=== PATIENT | female | born 1975 | race Caucasian/White ===

== ENCOUNTER 2019-04-28 18:17 | Emergency (ER) | payer BC ==
[2019-04-28] MEDS ORDERED: HYDROmorphone 0.5 MG/0.5 ML Syringe IM ONE (19:08)
[2019-04-28] MEDS ORDERED: cefTRIAXone 1 GM Vial IM ONE (19:08)
[2019-04-28] MEDS ORDERED: Ondansetron 4 MG Tab.DIS PO ONE (19:08)
[2019-04-28] MEDS ORDERED: Lidocaine 1% PF 2 ML SDV INJECT ONE (19:09)
--- NOTE | 2019-04-28 19:24 | EDM.PDOC ---
ED HPI GENERAL MEDICAL PROBLEM - General Chief Complaint: ENT Problem Stated Complaint: tooth pain Time Seen by Provider: 04/28/19 18:30 Source of Information: Reports: Patient, RN Notes Reviewed History Limitations: Reports: No Limitations - History of Present Illness INITIAL COMMENTS - FREE TEXT/NARRATIVE: Patient is a 43-year-old female who presents to the ED for evaluation of a dental complaint. Patient notes she is having right lower dental pain that developed this last . She did go to the clinic on Monday, and was started on Augmentin 875/125 mg twice a day, and was given tramadol for pain management. Patient notes that the tramadol is not drinking much for the pain at all. The patient notes that the tooth that seems to be throbbing is a tooth she's had a root canal done before. The patient tried calling her dental office on Monday, however found out that the office is only open Wednesdays and of the week. Patient notes she has not gotten much sleep since Monday due to the pain. She states it's hard to even open her mouth to chew, as the pain is too intense and it does shoot up into her ear at times. She has been trying Orajel, clove oil, hydrogen peroxide rinses, and none of this seems to be helping much at all. She also notes she has been taking Tylenol and ibuprofen with little to no relief. The patient appreciates some swelling into her right lower jaw. Right Lower Tooth/Teeth Pain Score (Numeric/FACES): 10 - Related Data Allergies Allergy/AdvReac Type Severity Reaction Status Date / Time sulfacetamide Allergy Rash Verified 05/11/18 08:44 Home Meds: Home Meds Multivitamin [Daily Gail] 1 tab PO DAILY 05/10/18 [History] Ibuprofen 600 mg PO Q6H PRN #60 tablet 05/11/18 [Rx] Amoxicillin/Clavulanate K [Augmentin 875-125 MG] 1 tab PO BID 04/28/19 [History] traMADol [Ultram] 1 tab PO Q4H 04/28/19 [History] Past Medical History HEENT History: Reports: Sinusitis Cardiovascular History: Reports: None Respiratory History: Reports: Asthma Gastrointestinal History: Reports: None OPENER TENDER History: Reports: Spontaneous Other OPENER TENDER History: dysfunctional uterine bleeding, menorrhagia Musculoskeletal History: Reports: Back Pain, Chronic Neurological History: Reports: Migraines Psychiatric History: Reports: None Endocrine/Metabolic History: Reports: None Hematologic History: Reports: Other (See Below) Other Hematologic History: von willebrands Immunologic History: Reports: None Oncologic (Cancer) History: Reports: None Dermatologic History: Reports: Cellulitis - Past Surgical History Head Surgeries/Procedures: Reports: None HEENT Surgical History: Reports: None Cardiovascular Surgical History: Reports: None Respiratory Surgical History: Reports: None GI Surgical History: Reports: None Female Surgical History: Reports: D&C Endocrine Surgical History: Reports: None Neurological Surgical History: Reports: None Musculoskeletal Surgical History: Reports: None Oncologic Surgical History: Reports: None Dermatological Surgical History: Reports: None Social & Family History - Tobacco Use Smoking Status *Q: Never Smoker - Caffeine Use Caffeine Use: Reports: Coffee, Soda - Recreational Drug Use Recreational Drug Use: No ED ROS ENT - Review of Systems Review Of Systems: See Below Constitutional: Denies: Fever, Chills HEENT: Reports: Dental Pain. Denies: Throat Pain, Throat Swelling Respiratory: Reports: No Symptoms Cardiovascular: Reports: No Symptoms Endocrine: Reports: No Symptoms GI/Abdominal: Reports: No Symptoms : Reports: No Symptoms Musculoskeletal: Reports: No Symptoms Skin: Reports: No Symptoms Neurological: Reports: No Symptoms Psychiatric: Reports: No Symptoms Hematologic/Lymphatic: Reports: No Symptoms ED EXAM, ENT - Physical Exam Exam: See Below Exam Limited By: No Limitations General Appearance: Alert, WD/WN, No Apparent Distress Mouth/Throat: Normal Inspection, Normal Gums, Normal Lips, Normal Oropharynx, Normal Teeth, Dental Pain (to R back molar, there is a dental bridge present. No obvious erythema noted to the area. The tooth is sensitive to touch.) Head: Atraumatic, Normocephalic Neck: Normal Inspection, Supple, Tender Lateral (tender along jaw line and into the R ear) Respiratory/Chest: No Respiratory Distress, Lungs Clear, Normal Breath Sounds, No Accessory Muscle Use, Chest Non-Tender Cardiovascular: Normal Peripheral Pulses, Regular Rate, Rhythm, No Murmur Extremities: Normal Inspection, Normal Capillary Refill Neurological: Alert, Oriented, Normal Cognition, No Motor/Sensory Deficits Psychiatric: Normal Affect, Normal Mood Skin: Warm, Dry, Intact, Normal Color, No Rash Course - Vital Signs Last Recorded V/S: Last Vital Signs Temp 98.4 F 04/28/19 18:29 Pulse 71 04/28/19 18:29 Resp 20 04/28/19 18:29 BP 126/77 04/28/19 18:29 Pulse Ox 100 04/28/19 18:29 - Orders/Labs/Meds Meds: Medications Discontinued Medications Generic Name Dose Route Start Last Admin Trade Name Ernesto PRN Reason Stop Dose Admin Ceftriaxone Sodium 1 gm 04/28/19 19:08 04/28/19 19:15 Rocephin IM 04/28/19 19:09 1 gm ONETIME ONE Administration Hydromorphone HCl 0.5 mg 04/28/19 19:08 04/28/19 19:16 Dilaudid IM 04/28/19 19:09 0.5 mg ONETIME ONE Administration Lidocaine HCl 2 ml 04/28/19 19:09 04/28/19 19:16 Xylocaine-Mpf 1% INJECT 04/28/19 19:10 2 ml ONETIME ONE Administration Ondansetron HCl 4 mg 04/28/19 19:08 04/28/19 19:16 Zofran Odt PO 04/28/19 19:09 4 mg ONETIME ONE Administration - Re-Assessments/Exams Free Text/Narrative Re-Assessment/Exam: 04/28/19 19:23 Patient presents to the ED for the evaluation of a dental complaint. She has tried multiple options at home, and has not been provided any relief. I will give the patient a 1 g injection of Rocephin was some lidocaine, 0.5 mg Dilaudid for pain relief, with 4 mg ODT Zofran for nausea management due to the Dilaudid administration. The patient has been placed on hydrocodone in the past for pain control, and I will try this avenue with her at the tramadol does not seem to be providing much effect, she will still need to keep taking her Augmentin as previously prescribed and follow-up with dentistry on Monday, she is understanding of this plan. Departure - Departure Time of Disposition: 19:24 Disposition: Home, Self-Care 01 Condition: Fair Clinical Impression: Pain, dental - Discharge Information *PRESCRIPTION DRUG MONITORING PROGRAM REVIEWED*: Yes *COPY OF PRESCRIPTION DRUG MONITORING REPORT IN PATIENT DENIS: No Referrals: Gracy Jane SKIVER HAND [Primary Care Provider] - Additional Instructions: You have been evaluated in the ED for your dental pain. Augmentin can cause diarrhea, recommend that you start a probiotic while taking this medication. Please keep taking the Augmentin as previously prescribed by the provider you saw on Monday. Aleve provides good pain relief for dental pain. Please take 1-2 tabs twice daily as needed for pain. You were given a prescription for hydrocodone/acetaminophen 5/325, please take one tablet every 6 hours as needed for pain not relieved by Aleve alone. Please use as little of this medication as possible for pain management as it is highly addictive. You may use hot pack/ ice packs to the affected area as tolerated in 15-20 minute intervals. You will ultimately need to find a dentist to provide definitive management of your dental pain. Please return to the ED if your symptoms change or worsen.
== END 2019-04-28 19:35 | disposition home or self-care (01) ==
LOC: JD.ED 18:17
DX: K08.89 Other specified disorders of teeth and supporting structures (principal); Z88.1 Allergy status to other antibiotic agents
CPT/HCPCS: 96372; 99282; A9270; J0696; J1170; J2001

== ENCOUNTER → 2019-05-24 | Day surgery (SDC) | payer BC ==
[~2019-05-24] MED LIST: Acetaminophen/oxyCODONE 325-5 MG Tab PO SCH; Dexamethasone 4 MG/ML 5 ML MDV ONE; HYDROmorphone 0.5 MG/0.5 ML Syringe ONE; Ketorolac 30 MG/ML SDV IVPUSH ONE; Lactated Ringers 1,000 ML IV SCH; Lactated Ringers 1,000 ML ONE; Lidocaine 1% 4 ML ONE; Lidocaine 1%/Sod Bicarbonate in NS 8.4% 1 ML Syringe IDERM PRN; Midazolam 1 MG/ML 2 ML SDV ONE; Ondansetron 4 MG Tab.DIS PO PRN; Ondansetron 4 MG/2 ML SDV ONE; Propofol 200 MG/20 ML SDV ONE; Rocuronium 50 MG/5 ML Vial ONE; Sodium Chloride 0.9% 10 ML Syringe FLUSH PRN; Sodium Chloride 0.9% 50 ML SDV ONE; ceFAZolin 1 GM Vial ONE; fentaNYL 100 MCG/2 ML SDV IVPUSH PRN; fentaNYL 100 MCG/2 ML SDV ONE; fentaNYL 250 MCG/5 ML SDV ONE
--- NOTE | 2019-05-24 09:57 | PCM.PREANE ---
Preanesthetic Assessment - Anesthesia/Transfusion/Family Hx Anesthesia History: Prior Anesthesia Without Reaction Family History of Anesthesia Reaction: No Transfusion History: No Prior Transfusion(s) Intubation History: Unknown - Review of Systems General: No Symptoms Pulmonary: No Symptoms Cardiovascular: No Symptoms Gastrointestinal: No Symptoms Neurological: No Symptoms Other: Reports: None - Physical Assessment NPO Status Date: 05/23/19 NPO Status Time: 20:00 Vital Signs: Last Vital Signs Temp 37.3 C 05/24/19 08:30 Pulse 78 05/24/19 08:30 Resp 16 05/24/19 08:30 BP 121/75 05/24/19 08:30 Pulse Ox 100 05/24/19 08:30 ASA Class: 3 Airway Class: Mallampati = 2 Dentition: Reports: Normal Dentition Thyro-Mental Finger Breadths: 3 Mouth Opening Finger Breadths: 3 ROM/Head Extension: Other Lungs: Clear to Auscultation Cardiovascular: Regular Rate, Regular Rhythm - Allergies Allergies/Adverse Reactions: Allergies Allergy/AdvReac Type Severity Reaction Status Date / Time sulfacetamide Allergy Rash Verified 05/23/19 11:30 - Acknowledgements Anesthesia Type Planned: General Anesthesia Pt an Appropriate Candidate for the Planned Anesthesia: Yes Alternatives and Risks of Anesthesia Discussed w Pt/Guardian: Yes Pt/Guardian Understands and Agrees with Anesthesia Plan: Yes PreAnesthesia Questionnaire HEENT History: Reports: Sinusitis Cardiovascular History: Reports: None Respiratory History: Reports: Asthma (pt states was told had adult onset asthma , but states has no inhaler or symptoms) Gastrointestinal History: Reports: None Genitourinary History: Reports: None FRUIT SORTER History: Reports: Endometrial Ablation, Spontaneous Other OB/BYN History: dysfunctional uterine bleeding, menorrhagia Musculoskeletal History: Reports: Back Pain, Chronic Neurological History: Reports: Migraines Psychiatric History: Reports: None Endocrine/Metabolic History: Reports: None Hematologic History: Reports: Other (See Below) Other Hematologic History: Potential von willebrands- testing has never been able to be completed due to patient on oral contraceptives since 12 years old. does state has a tendency to bruise more easily. and Also stated after endometrial ablation had moderate bleeding for 3 weeks post op. Immunologic History: Reports: None Oncologic (Cancer) History: Reports: None Dermatologic History: Reports: Cellulitis - Past Surgical History Head Surgeries/Procedures: Reports: None HEENT Surgical History: Reports: None, Oral Surgery Cardiovascular Surgical History: Reports: None Respiratory Surgical History: Reports: None GI Surgical History: Reports: None Female Surgical History: Reports: D&C, Other (See Below) (endometrial ablation) Endocrine Surgical History: Reports: None Neurological Surgical History: Reports: None Musculoskeletal Surgical History: Reports: None Oncologic Surgical History: Reports: None Dermatological Surgical History: Reports: None - SUBSTANCE USE Smoking Status *Q: Never Smoker Recreational Drug Use History: No - HOME MEDS Home Medications: Home Meds Multivitamin [Daily Gail] 1 tab PO DAILY 05/10/18 [History] Mv,Jon,Iron,Mn/Folic Acid/Chol [Hair, Skin and Nails Capsule] 1 cap PO DAILY [History] - CURRENT (IN HOUSE) MEDS Current Meds: Current Medications Lactated Ringer's (Ringers, Lactated) 1,000 mls @ 125 mls/hr IV ASDIRECTED BING Last Admin: 05/24/19 09:00 Dose: 125 mls/hr Lidocaine/Sodium Bicarbonate (Buffered Lidocaine 1% In Ns 8.4%) 0.25 ml IDERM ONETIME PRN PRN Reason: Prior to IV Start Last Admin: 05/24/19 08:59 Dose: 0.25 ml Sodium Chloride (Saline Flush) 10 ml FLUSH ASDIRECTED PRN PRN Reason: Keep Vein Open Discontinued Medications Fentanyl (Sublimaze) Confirm Administered Dose 250 mcg .ROUTE .STK-MED ONE Stop: 05/24/19 07:14 Lidocaine HCl (Xylocaine-Mpf 1%) Confirm Administered Dose 4 mls @ as directed .ROUTE .STK-MED ONE Stop: 05/24/19 07:14 Midazolam HCl (Versed 1 Mg/Ml) Confirm Administered Dose 2 mg .ROUTE .STK-MED ONE Stop: 05/24/19 07:14 Propofol (Diprivan 20 Ml) Confirm Administered Dose 200 mg .ROUTE .STK-MED ONE Stop: 05/24/19 07:13 Rocuronium [place] (Zemuron) Confirm Administered Dose 50 mg .ROUTE .STK-MED ONE Stop: 05/24/19 07:14
[2019-05-24] MEDS: Bupivacaine 0.25% 10 ML SDV ONE ×2 (11:50→12:04)
[2019-05-24] MEDS: Lidocaine 1% with EPINEPHrine 1:100,000 20 ML MDV ONE ×2 (12:04→12:20)
--- NOTE | 2019-05-24 13:19 | PCM.POSTAN ---
POST ANESTHESIA ASSESSMENT - MENTAL STATUS Mental Status: Alert, Oriented - VITAL SIGNS Vital Signs: Last Vital Signs Temp 37.3 C 05/24/19 08:30 Pulse 78 05/24/19 08:30 Resp 16 05/24/19 08:30 BP 121/75 05/24/19 08:30 Pulse Ox 100 05/24/19 08:30 - RESPIRATORY Respiratory Status: Respiratory Rate WNL, Airway Patent, O2 Saturation Stable - CARDIOVASCULAR CV Status: Pulse Rate WNL, Blood Pressure Stable - GASTROINTESTINAL GI Status: No Symptoms - PAIN Pain Score: 6 - POST OP HYDRATION Hydration Status: Adequate & Stable
--- NOTE | 2019-05-24 13:32 | PCM.OPNOTE ---
- General Post-Op/Procedure Note Date of Surgery/Procedure: 05/24/19 Operative Procedure(s): Laparoscopic-assisted vaginal hysterectomy, bilateral salpingectomy, biopsy from anterior uterus peritoneum and bladder peritoneum Findings: Grossly normal-appearing uterus, bilateral fallopian tubes and ovaries. Anterior cul-de-sac with 2 small lesions that were suspicious for possible endometriosis. Biopsy was taken from the anterior uterus peritoneum and the bladder peritoneum. Grossly normal-appearing visualized portions of the intestines, liver and stomach. Grossly normal-appearing gallbladder and appendix. Pre Op Diagnosis: Abnormal uterine bleeding, dysmenorrhea and history of endometrial ablation Post-Op Diagnosis: Same Anesthesia Technique: General ET Tube Primary Surgeon: Frantz Dolan Anesthesia Provider: Asha Cardenas Swing Saw Operator: Rahul Mccracken Swing Saw Operator: Eitan Garrett ([employer] student) Reason Swing Saw Operator Was Necessary: Patient safety and reduction of morbidity and mortality. Role of Swing Saw Operator: Retraction for visualization and use of laparoscopic instruments during procedure. Pathology: Uterus, bilateral fallopian tubes and cervix. Anterior uterine peritoneal biopsy. Bladder peritoneum biopsy. Fluid Replacement, Intraop: 1,400 Output, Urine Amount: 225 EBL in mLs: 50 Complications: None Condition: Good Free Text/Narrative:: The patient was seen in the preoperative holding area and risks, benefits, indications, and alternatives of the procedure were reviewed with the patient and she desired to proceed with a laparoscopic assisted vaginal hysterectomy, bilateral salpingectomy, possible unilateral or bilateral salpingo-oophorectomy and possible total abdominal hysterectomy. Consents were reviewed. The patient was taken back to the OR and given general anesthesia with an endotracheal tube which was placed without difficulty. She was placed in dorsal lithotomy position using Yellofin stirrups. She was prepped and draped in normal sterile fashion. A Min catheter was placed without difficulty. Attention was then turned to her umbilicus and this was injected with 0.5% Marcaine and a 5 mm stab incision was made with a scalpel and a Veress needle was then inserted through the incision. The gas was turned on, with an opening pressure of 6 mmHg. Pneumoperitoneum was continued until 15 mmHg pressure. A 5 mm trocar was then inserted under direct visualization through the incision without difficulty. Attention was then turned to the patient's right lower quadrant where an avascular space approximately long term between the ASIS and the umbilicus was identified. Local anesthetic was injected and a 5 mm incision was made with a scalpel. A 5 mm trocar was then inserted under direct visualization of the laparoscope. Attention was then turned to the left lower quadrant, where again an avascular portion of the abdominal wall was identified approximately long term between the ASIS and the umbilicus. Local anesthetic was injected and a scalpel was used to make a 5 mm incision. A 5 mm trocar was inserted under direct visualization with the laparoscope. Attention was then turned to the pelvis where the uterus was visualized and noted be normal in appearance with normal appearing bilateral fallopian tubes and normal-appearing bilateral ovaries. The atraumatic grasper was then removed from the right lower trocar and a Enseal vessel sealing device was introduced and was used to transect the right fallopian tube and round ligament. The mesosalpinx connecting the right fallopian tube was transected from the ovary and underlying tissue. The right round ligament was then transected using the Enseal vessel sealing device. The utero-ovarian ligament was then transected using the Enseal vessel sealing device. The right side of the uterus and broad ligament were then transected using the Enseal vessel sealing device until the level of the uterovesical peritoneal reflection. A bladder flap was created using the Enseal vessel sealing device by pushing the bladder up and away from the uterus. There was noted to be presence of 2 small powder burn lesions in this area. A biopsy was taken of these 2 areas. The first one was located on the anterior uterine peritoneal surface. The second was located on the bladder peritoneal surface. The fallopian tube was transected from the mesosalpinx using the Enseal vessel sealing device. The utero-ovarian ligament was then transected using Enseal vessel sealing device. The left round ligament was transected using Enseal vessel sealing device and the broad ligament was transected to the level of the uterovesical peritoneal reflection. The pelvis was then inspected for hemostasis at this time and hemostasis was noted. All instruments were removed from the abdomen. Attention was then turned to the patient's perineum where a weighted speculum was placed into the vagina and a Phoenix retractor was used to visualize the cervix. The cervix was grasped with a double-tooth tenaculum. The cervical reflection point was then injected circumferentially with 0.25% lidocaine with epinephrine. The cervix was then circumferentially incised with a scalpel. The bladder was then dissected off the pubovesical cervical fascia anteriorly with Metzenbaum scissors. The same procedure was performed posteriorly and the posterior cul-de-sac was entered sharply without difficulty using Metzenbaum scissors. At this point, an Enseal vessel sealing device was placed over the uterosacral ligaments on the patient's left side. These were cauterized and ligated with the device. This was repeated on the patient's right side. Hemostasis was assured. The cardinal ligaments were then clamped on both sides using the Enseal vessel sealing device, cauterized and transected with the device. The uterine artery on the patient's right side side and the remainder of the broad ligament were then serially clamped with the Enseal vessel sealing device, cauterized and transected with the device. Excellent hemostasis was noted. The cervix and uterus was able to be delivered at this time. The posterior vaginal cuff was closed with running locked sutures of 0 Monocryl. The vaginal cuff was then closed in a horizontal fashion using running locked sutures with 0 Monocryl suture. All instruments were removed from the vagina. Attention was then turned to the abdomen where a laparoscope was inserted and was used to check for hemostasis. Hemostasis was noted at this time. The case was complete at this time. The appendix was inspected and noted be normal in appearance. The upper abdomen was inspected and noted to have normal-appearing liver edge and visualized portion of the gallbladder. The stomach was visualized and appeared normal. The visualized portions of the intestines were normal. The gas was then evacuated from the peritoneum and trocars removed. These were closed using 4-0 Monocryl suture and Dermabond. The patient was awoken from general anesthesia and taken to the PACU for recovery in stable condition. She will be discharged to home once she is able to meet all postoperative milestones including tolerating small amount of oral intake and liquids, ambulate without difficulty, her pain controlled with oral medications and able to void without difficulty. She will follow-up in the clinic in 2 weeks or earlier as needed. Sponge, lap, needle, and instrument counts were correct x 2. Review of images IMG 001: Error image IMG 002: Grossly normal appearing view of the uterus IMG 003: Right fallopian tube and ovary grossly normal in appearance IMG 004: Left fallopian tube and ovary grossly normal in appearance. IMG 005: Small gunpowder-type lesion on the bladder peritoneum that was biopsied IMG 006: Gunpowder-type lesion on the anterior uterine peritoneum that was biopsied IMG 007: Postoperative vaginal cuff with hemostasis noted. IMG 008: Right broad ligament with hemostasis noted after hysterectomy. IMG 009: Left broad ligament with hemostasis noted after hysterectomy. IMG 010: Grossly normal-appearing appendix IMG 011: Grossly normal-appearing liver edge and gallbladder IMG 012: Normal-appearing stomach
[2019-05-24] MEDS: HYDROmorphone 0.5 MG/0.5 ML Syringe IVPUSH PRN ×2 (13:33→13:48)
--- NOTE | 2019-05-24 13:40 | PCM48HPAN ---
Post Anesthesia Note - EVALUATION WITHIN 48HRS OF ANESTHETIC Vital Signs in Normal Range: Yes Patient Participated in Evaluation: Yes Respiratory Function Stable: Yes Airway Patent: Yes Cardiovascular Function Stable: Yes Hydration Status Stable: Yes Pain Control Satisfactory: Yes Nausea and Vomiting Control Satisfactory: Yes Mental Status Recovered: Yes Vital Signs: Last Vital Signs Temp 37.0 C 05/24/19 13:20 Pulse 79 05/24/19 13:20 Resp 14 05/24/19 13:20 BP 113/70 05/24/19 13:20 Pulse Ox 100 05/24/19 13:20
== END | disposition home or self-care (01) ==
LOC: JD.SDS 08:21
PROVIDERS: ATTEND Obstetrics & Gynecology
DX: N80.0 Endometriosis of uterus (principal); N80.3 Endometriosis of pelvic peritoneum; N72 Inflammatory disease of cervix uteri; E66.9 Obesity, unspecified; D68.0 Von Willebrand disease; G43.809 Other migraine, not intractable, without status migrainosus; G43.909 Migraine, unspecified, not intractable, without status migrainosus; Z88.2 Allergy status to sulfonamides; Z68.30 Body mass index [BMI] 30.0-30.9, adult; Z79.3 Long term (current) use of hormonal contraceptives; Z79.899 Other long term (current) drug therapy
CPT/HCPCS: 00944; 36415; 81003; 81025; 85610; 85730; 86850; 86900; 86901; A9270-GY; J0131; J0690; J1100; J1170; J1885; J2001; J2250; J2405; J2704; J3010; J3490; J7120